=== PATIENT | female | born 1975 | race Caucasian/White ===

== ENCOUNTER 2019-08-18 08:23 | Outpatient (CLI) | payer BC ==
--- NOTE | 2019-08-18 08:44 | RAD ---
2 views right hip: 08/18/2019 COMPARISON: None HISTORY: Right hip pain for one year, no history of injury FINDINGS: No fracture or dislocation. No radiopaque foreign body or subcutaneous gas. There is degene rative change involving the right sacroiliac joint. IMPRESSION: No acute findings.
== END 2019-08-18 08:24 | disposition home or self-care (01) ==
LOC: BICRAD 08:23
PROVIDERS: ATTEND Family Medicine
DX: M25.551 Pain in right hip (principal)

== ENCOUNTER 2020-06-21 13:15 | Outpatient (CLI) | payer BC ==
--- NOTE | 2020-06-21 14:03 | MMO ---
Right Breast MAMMO Unilat Diag DDI RT+SHAN. CLINICAL HISTORY: Patient is 44 years old and is seen for additional evaluation requested at current screening. The patient has no family history of breast cancer. The patient has no personal history of cancer. VIEWS: The views performed were: right craniocaudal spot compression magnification; right mediolateral spot compression magnification; and right mediolateral with tomosynthesis. FILMS COMPARED: The present examination has been compared to a prior imaging study performed at [facility] on 06/11/2020. This study has been interpreted with the assistance of computer-aided detection. MAMMOGRAM FINDINGS: The tiny calcs in the right upper outer breast have an indeterminate appearance and should be biopsied. IMPRESSION: FINDING IN THE RIGHT BREAST IS SUSPICIOUS. A STEREOTACTIC BREAST BIOPSY IS RECOMMENDED. THE RESULTS OF THIS EXAM WERE SENT TO THE PATIENT. ACR BI-RADS Category 4 - Suspicious abnormality - biopsy should be considered D/W pt. in person @ 2 pm MAMMOGRAPHY NOTE: 1. A negative mammogram report should not delay a biopsy if a dominant of clinically suspicious mass is present. 2. Approximately 10% to 15% of breast cancers are not detected by mammography. 3. Adenosis and dense breasts may obscure an underlying neoplasm. Reported by: ANNITA MARROQUIN MD Electonically Signed: [id number]
== END 2020-06-21 13:16 | disposition home or self-care (01) ==
LOC: BICMAMMO 13:15
PROVIDERS: ATTEND Physician Assistant
DX: R92.1 Mammographic calcification found on diagnostic imaging of breast (principal)
CPT/HCPCS: G0279

== ENCOUNTER → 2020-07-02 | Day surgery (SDC) | payer BC ==
--- NOTE | 2020-07-02 10:10 | MMO ---
RIGHT BREAST STEREOTACTIC BIOPSY SURGICAL SPECIMEN POSTPROCEDURE MAMMOGRAM: Date: 07/02/2020 HISTORY: Right breast calcifications. FINDINGS: Successful right breast stereotactic biopsy. Calcifications are present. There are no immediate or po stprocedure complications. Post biopsy clip was placed. Biopsy clip is slightly inferior to the calci fications on the MLO projection. TECHNIQUE: Consent obtained to perform a right breast stereotactic biopsy. Right breast was prepped and draped i n a sterile fashion. 1% lidocaine, buffered with sodium bicarbonate, was used for local anesthesia. U nder stereotactic guidance, the biopsy needle was confirmed in the pre and post fire position. Stereo tactic biopsy was performed. A total of ten 6 gauge core biopsy samples were obtained. Specimen radio graph was performed. Calcifications were present. Hemostasis was achieved with manual pressure. Postprocedure mammogram was performed. Biopsy clip noted. On the CC projection, clip position was peyman ropriate. On the MLO projection, the clip was slightly inferior to the region of calcifications. The patient tolerated the procedure well. No immediate or postprocedure complication. IMPRESSION: Successful right breast sterotactic biopsy. Final pathologic diagnosis is pending. POS: [facility]
== END ==
LOC: MAMMO 07:01
PROVIDERS: ATTEND Physician Assistant
PROC: 0H9T3ZX Drainage of Right Breast, Percutaneous Approach, Diagnostic (ICD-10-PCS; principal; 2020-07-02)
DX: N60.21 Fibroadenosis of right breast (principal); D24.1 Benign neoplasm of right breast; N60.31 Fibrosclerosis of right breast
CPT/HCPCS: 19081; 76098; 88305